=== PATIENT | female | born 1975 | race Hispanic/Latino ===

== ENCOUNTER 2020-08-12 23:18 | Emergency (ER) | payer SELFPAY ==
[~2020-08-12] VITALS: Ht 157.5 cm; Wt 68.9 kg
[2020-08-12] MEDS ORDERED: OXYMETAZOLINE HCL 0.05% NAS 1 SPRAY BTL ONE (23:30)
[2020-08-12 23:42] LABS: BASOPHILS # (AUTO) 0.1 (0.0-0.1); BASOPHILS % 0.7 % (0.0-1.0); EOSINOPHILS # (AUTO) 0.2 (0.0-0.4); EOSINOPHILS % 1.6 % (0.0-6.0); HEMATOCRIT 29.8 % (34.2-44.1); HEMOGLOBIN 9.2 g/dL (12.0-16.0); LYMPHOCYTES # (AUTO) 2.5 (1.0-3.2); LYMPHOCYTES % 22.4 % (18.0-39.1); MEAN CORPUSCULAR HEMOGLOBIN 24.5 pg (28-32); MEAN CORPUSCULAR HGB CONC 30.9 g/dL (31-35); MEAN CORPUSCULAR VOLUME 79.3 fL (81-99); MONOCYTES # (AUTO) 0.8 (0.2-0.8); MONOCYTES % 7.7 % (4.4-11.3); NEUTROPHILS # (AUTO) 7.3 (2.1-6.9); NEUTROPHILS % 67.2 % (38.7-80.0); PLATELET COUNT 377 x10e3/uL (140-360); RED BLOOD COUNT 3.76 x10e6/uL (3.6-5.1); RED CELL DISTRIBUTION WIDTH 13.6 % (11.7-14.4)
[2020-08-12 23:46] LABS: INR 0.89; PROTHROMBIN TIME 12.5 seconds (11.9-14.5)
[2020-08-12 23:47] LABS: PARTIAL THROMBOPLASTIN TIME 24.8 seconds (23.8-35.5)
[2020-08-12 23:53] LABS: ANION GAP 11.9 mmol/L (8-16); BLOOD UREA NITROGEN 14 mg/dL (7-26); BUN/CREATININE RATIO 19 (6-25); CALCIUM 9.2 mg/dL (8.4-10.2); CARBON DIOXIDE 23 mmol/L (22-29); CHLORIDE 106 mmol/L (98-107); CREATININE, SERUM 0.73 mg/dL (0.57-1.11); EST GLOMERULAR FILTRATION RATE > 60 ML/MIN (60-); GLUCOSE 167 mg/dL (74-118); POTASSIUM 3.9 mmol/L (3.5-5.1); SODIUM 137 mmol/L (136-145)
--- NOTE | 2020-08-12 23:55 | Emergency Department Note ---
History of Present Illnes History of Present Illness Chief Complaint: Eye, Ear, Nose, Throat, Dental History of Present Illness This is a 45 year old female presents to the ed for nose bleeding. patient has a standing history of moyamoya disease. states she has been having a mild headache since the afternoon and then developed nose bleeding. neurological exam intact. no active nose bleed at this time and pt denies headache at this time, states was watching tv when nose bleed began . 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 Any updates have been documented here. Past Medical History Recent Fever: No Clinical Suspicion of Infectio: No New/Unexplained Change in Ment: No Social History Smoking Cessation: Never Smoker Alcohol Use: None Any Illegal Drug Use: No Family History Family history of heart diseas: No Review of Systems Review of Systems Constitutional: Reports no symptoms EENTM: Reports as per HPI Cardiovascular: Reports no symptoms Respiratory: Reports no symptoms Gastrointestinal: Reports no symptoms Genitourinary: Reports no symptoms Musculoskeletal: Reports no symptoms Integumentary: Reports no symptoms Neurological: Reports as per HPI Psychological: Reports no symptoms Endocrine: Reports no symptoms Hematological/Lymphatic: Reports no symptoms Physical Exam Related Data Allergies: Coded Allergies: No Known Allergies (Unverified , 08/12/20) Triage Vital Signs Vital Signs Date Time Temp Pulse Resp B/P (MAP) Pulse Ox O2 Delivery O2 Flow Rate FiO2 08/12/20 23:28 98.2 86 20 176/107 100 Vital signs reviewed: Yes Physical Exam CONSTITUTIONAL Constitutional: Present well-developed, Present well-nourished HENT no bleeding from nose at this time, no clot or bleeding site identified when examined with otoscope no blood in posterior pharynx HENT: Present normocephalic, Present atraumatic, Present oropharynx clear/moist, Present nose normal HENT L/R: Present left ext ear normal, Present right ext ear normal EYES Eyes: Reports PERRL, Reports conjunctivae normal NECK Neck: Present ROM normal PULMONARY Pulmonary: Present effort normal, Present breath sounds normal CARDIOVASCULAR Cardiovascular: Present regular rhythm, Present heart sounds normal, Present capillary refill normal, Present normal rate GASTROINTESTINAL Abdominal: Present soft, Present nontender, Present bowel sounds normal GENITOURINARY Genitourinary: Present exam deferred SKIN Skin: Present warm, Present dry MUSCULOSKELETAL Musculoskeletal: Present ROM normal NEUROLOGICAL Neurological: Present alert, Present oriented x 3, Present no gross motor or sensory deficits PSYCHOLOGICAL Psychological: Present mood/affect normal, Present judgement normal Results Laboratory Result Diagram: 08/12/20 2329 Laboratory Laboratory Tests Test 08/12/20 23:29 White Blood Count 10.93 x10e3/uL (4.8-10.8) Red Blood Count 3.76 x10e6/uL (3.6-5.1) Hemoglobin 9.2 g/dL (12.0-16.0) Hematocrit 29.8 % (34.2-44.1) Mean Corpuscular Volume 79.3 fL (81-99) Mean Corpuscular Hemoglobin 24.5 pg (28-32) Mean Corpuscular Hemoglobin Concent 30.9 g/dL (31-35) Red Cell Distribution Width 13.6 % (11.7-14.4) Platelet Count 377 x10e3/uL (140-360) Neutrophils (%) (Auto) 67.2 % (38.7-80.0) Lymphocytes (%) (Auto) 22.4 % (18.0-39.1) Monocytes (%) (Auto) 7.7 % (4.4-11.3) Eosinophils (%) (Auto) 1.6 % (0.0-6.0) Basophils (%) (Auto) 0.7 % (0.0-1.0) Neutrophils # (Auto) 7.3 (2.1-6.9) Lymphocytes # (Auto) 2.5 (1.0-3.2) Monocytes # (Auto) 0.8 (0.2-0.8) Eosinophils # (Auto) 0.2 (0.0-0.4) Basophils # (Auto) 0.1 (0.0-0.1) Absolute Immature Granulocyte (auto 0.04 x10e3/uL (0-0.1) Prothrombin Time 12.5 seconds (11.9-14.5) Prothromb Time International Ratio 0.89 Activated Partial Thromboplast Time 24.8 seconds (23.8-35.5) Sodium Level 137 mmol/L (136-145) Potassium Level 3.9 mmol/L (3.5-5.1) Chloride Level 106 mmol/L (98-107) Carbon Dioxide Level 23 mmol/L (22-29) Anion Gap 11.9 mmol/L (8-16) Blood Urea Nitrogen 14 mg/dL (7-26) Creatinine 0.73 mg/dL (0.57-1.11) Estimat Glomerular Filtration Rate > 60 ML/MIN (60-) BUN/Creatinine Ratio 19 (6-25) Glucose Level 167 mg/dL (74-118) Calcium Level 9.2 mg/dL (8.4-10.2) Laboratory Tests Test 08/12/20 23:29 White Blood Count 10.93 x10e3/uL (4.8-10.8) Red Blood Count 3.76 x10e6/uL (3.6-5.1) Hemoglobin 9.2 g/dL (12.0-16.0) Hematocrit 29.8 % (34.2-44.1) Mean Corpuscular Volume 79.3 fL (81-99) Mean Corpuscular Hemoglobin 24.5 pg (28-32) Mean Corpuscular Hemoglobin Concent 30.9 g/dL (31-35) Red Cell Distribution Width 13.6 % (11.7-14.4) Platelet Count 377 x10e3/uL (140-360) Neutrophils (%) (Auto) 67.2 % (38.7-80.0) Lymphocytes (%) (Auto) 22.4 % (18.0-39.1) Monocytes (%) (Auto) 7.7 % (4.4-11.3) Eosinophils (%) (Auto) 1.6 % (0.0-6.0) Basophils (%) (Auto) 0.7 % (0.0-1.0) Neutrophils # (Auto) 7.3 (2.1-6.9) Lymphocytes # (Auto) 2.5 (1.0-3.2) Monocytes # (Auto) 0.8 (0.2-0.8) Eosinophils # (Auto) 0.2 (0.0-0.4) Basophils # (Auto) 0.1 (0.0-0.1) Absolute Immature Granulocyte (auto 0.04 x10e3/uL (0-0.1) Prothrombin Time 12.5 seconds (11.9-14.5) Prothromb Time International Ratio 0.89 Activated Partial Thromboplast Time 24.8 seconds (23.8-35.5) Imaging Imaging results reviewed: Yes Impressions Procedure: [id number] CT/CT BRAIN WO Exam Date: 08/12/20 Exam Time: 2330 REPORT STATUS: Signed EXAMINATION: Head CT HISTORY: 45-year-old female with headache and nosebleed. COMPARISON: None. TECHNIQUE: Helical axial images of the head were obtained. Reformatted coronal and sagittal images from the axial data. Dose modulation, iterative reconstruction, and/or weight based adjustment of the mA/kV was utilized to reduce the radiation dose to as low as reasonably achievable. FINDINGS: Parenchyma: 1. Few scattered and mildly confluent periventricular matter hypodensities, most likely nonspecific early metatarsal ischemic changes. 2. Cortical subcortical encephalomalacia in the bilateral superior/medial frontal , precentral and partially postcentral gyri and covarrubias radiata, likely the sequela from prior ischemic infarcts given the history of moyamoya disease. 3. No mass or hemorrhage. No CT evidence of acute territorial vascular insult. Extra-axial spaces:No abnormal density. No extra-axial fluid collections Brain volume: Normal for age. Ventricles: No hydrocephalus or displacement. Arteries: No density suggestive of thrombus. Dural sinuses: No abnormal density. Foramen magnum: No mass, Chiari malformation, or basilar invagination. Sella: No obvious mass. Paranasal/mastoid sinuses: Imaged portions unremarkable. Skull/Scalp: No lytic or blastic lesions. No fractures. IMPRESSION: 1. No acute intracranial hemorrhage or CT evidence of acute cortical infarcts. 2. Bilateral frontal chronic infarcts as detail above. 3. Mild chronic microvascular ischemic changes. Signed by: Dr. Olga Perkins M.D. 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
--- NOTE | 2020-08-13 00:04 | Diagnostic Imaging Report ---
EXAMINATION: Head CT HISTORY: 45-year-old female with headache and nosebleed. COMPARISON: None. TECHNIQUE: Helical axial images of the head were obtained. Reformatted coronal and sagittal images from the axial data. Dose modulation, iterative reconstruction, and/or weight based adjustment of the mA/kV was utilized to reduce the radiation dose to as low as reasonably achievable. FINDINGS: Parenchyma: 1. Few scattered and mildly confluent periventricular matter hypodensities, most likely nonspecific early metatarsal ischemic changes. 2. Cortical subcortical encephalomalacia in the bilateral superior/medial frontal , precentral and partially postcentral gyri and covarrubias radiata, likely the sequela from prior ischemic infarcts given the history of moyamoya disease. 3. No mass or hemorrhage. No CT evidence of acute territorial vascular insult. Extra-axial spaces:No abnormal density. No extra-axial fluid collections Brain volume: Normal for age. Ventricles: No hydrocephalus or displacement. Arteries: No density suggestive of thrombus. Dural sinuses: No abnormal density. Foramen magnum: No mass, Chiari malformation, or basilar invagination. Sella: No obvious mass. Paranasal/mastoid sinuses: Imaged portions unremarkable. Skull/Scalp: No lytic or blastic lesions. No fractures. IMPRESSION: 1. No acute intracranial hemorrhage or CT evidence of acute cortical infarcts. 2. Bilateral frontal chronic infarcts as detail above. 3. Mild chronic microvascular ischemic changes. Signed by: Dr. Olga Carias M.D. on 08/13/2020 12:01 AM
[2020-08-13 00:24] VITALS: BP 149/87
--- NOTE | 2020-08-13 00:24 | NUR ---
pt used afrin spray as per md orders. pt instructed to blow nose after afrin spray, no blood clots noted.
--- OUTSIDE RECORDS SUMMARY | 2020-08-17 18:24 | XMS REPORT | Continuity of Care Document ---
Author Author [facility] Organization [facility] Address [address] [place] [address] Phone Unavailable Care Team Providers Care Power House Engineer Name Role Phone Matt MONROY Attphys Unavailable Problems This patient has no known problems. Allergies, Adverse Reactions, Alerts This patient has no known allergies or adverse reactions. Medications This patient has no known medications. Procedures This patient has no known procedures. Results Test Description Test Time Test Comments Results Result Comments Source CT BRAIN WO 2020-08-12 23:57:00 [facility] 1975 Sex: F [place] [address] Patient Name: HILLARY ORTIZ MR #: [id number] : 1975 Age/Sex: 45/F Req #: [id number] [facility] Physician: Ordered by: KAMLA MONROY MD Report #: [id number] Location: ER Room/Bed: Procedure: [id number] CT/CT BRAIN WO Exam Date: 08/12/20 Exam Time: 2330 REPORT STATUS: Signed EXAMINATION: Head CT HISTORY: 45-year-old female with headache and nosebleed. COMPARISON: None. TECHNIQUE: Helical axial images of the head were obtained. Reformatted coronal and sagittal images from the axial data. Dose modulation, iterative reconstruction, and/or weight based adjustment of the mA/kV was utilized to reduce the radiation dose to as low as reasonably achievable. FINDINGS: Parenchyma: 1. Few scattered and mildly confluent periventricular matter hypodensities, most likely nonspecific early metatarsal ischemic changes. 2. Cortical subcortical encephalomalacia in the bilateral superior/medial frontal , precentral and partially postcentral gyri and covarrubias radiata, likely the sequela from prior ischemic infarcts given the history of moyamoya disease. 3. No mass or hemorrhage. No CT evidence of acute territorial vascular insult. Extra-axial spaces:No abnormal density. No extra-axial fluid collections Brain volume: Normal for age. Ventricles: No hydrocephalus or displacement. Arteries: No density suggestive of thrombus. Dural sinuses: No abnormal density. Foramen magnum: No mass, Chiari malformation, or basilar invagination. Sella: No obvious mass. Paranasal/mastoid sinuses: Imaged portions unremarkable. Skull/Scalp: No lytic or blastic lesions. No fractures. IMPRESSION: 1. No acute in tracranial hemorrhage or CT evidence of acute cortical infarcts. 2. Bilateral frontal chronic infarcts as detail above. 3. Mild chronic microvascular ischemic changes. Signed by: Dr. Patricia Carias M.D. on 08/13/2020 12:01 AM Dictated By: PATRICIA CARIAS MD 19 Transcribed By: SUZAN on 08/13/202019 COPY TO: KAMLA MONROY MD
== END 2020-08-13 01:15 | disposition home or self-care (01) ==
LOC: ER 23:26
DX: R04.0 Epistaxis (principal); R51.9 Headache, unspecified
CPT/HCPCS: 36415; 70450; 80048; 85025; 85610; 85730; 99282